=== PATIENT | male | born 1965 | race Caucasian/White ===

== ENCOUNTER → 2019-02-19 | Outpatient (CLI) | payer BC ==
[~2019-02-19] MED LIST: NO HOME MEDICATIONS
== END ==
LOC: COL.RAD 10:30
DX: M19.072 Primary osteoarthritis, left ankle and foot (principal)

== ENCOUNTER 2020-09-07 07:25 | Emergency (ER) | payer BC ==
[~2020-09-07] VITALS: Ht 195.6 cm; Wt 147.7 kg
[2020-09-07 07:35] VITALS: TEMP 97.6
[2020-09-07] MEDS ORDERED: MOBIC15 MG PO (07:55)
[2020-09-07] MEDS ORDERED: LIDODERM 5% PATC1 EA TP (08:17)
[2020-09-07 08:30] VITALS: BP 131/80; PULSE 80
[2020-09-07] MEDS ORDERED: NORCO 325 MG-51 TAB PO (12:33)
[2020-09-07] MEDS ORDERED: FLEXERIL 1010 MG/TAB PO (16:46)
== END 2020-09-07 08:37 | disposition home or self-care (01) ==
LOC: COL.ER 07:25
DX: S20.212A Contusion of left front wall of thorax, initial encounter (principal); I10 Essential (primary) hypertension; W19.XXXA Unspecified fall, initial encounter; W22.8XXA Striking against or struck by other objects, initial encounter
CPT/HCPCS: J1885

== ENCOUNTER 2020-09-07 15:45 | Emergency (ER) | payer BC ==
[~2020-09-07] VITALS: Ht 195.6 cm; Wt 147.7 kg
[~2020-09-07 15:45] MED LIST changes: +LIDODERM 5% PATC1 EA TP; +MOBIC15 MG PO; +NORCO 325 MG-51 TAB PO
[2020-09-07 16:02] VITALS: TEMP 97.8
[2020-09-07] MEDS ORDERED: FLEXERIL 1010 MG/TAB PO (16:46)
[2020-09-07 17:02] VITALS: BP 149/89; PULSE 85
== END 2020-09-07 17:03 | disposition home or self-care (01) ==
LOC: COL.ER 15:45
DX: S20.212A Contusion of left front wall of thorax, initial encounter (principal); I10 Essential (primary) hypertension; W19.XXXA Unspecified fall, initial encounter; W22.8XXA Striking against or struck by other objects, initial encounter